=== PATIENT | female | born 1965 | race Caucasian/White ===

== ENCOUNTER 2021-10-22 10:41 | Outpatient (CLI) | payer MEDICAID, SELFPAY | END 2021-10-22 10:42 | disposition home or self-care (01) | LOC: LKVREF 10-25 10:55 | PROVIDERS: Visit Provider Nurse Practitioner Family | DX: R35.0 Frequency of micturition (principal); N39.0 Urinary tract infection, site not specified; R30.0 Dysuria | CPT/HCPCS: 87086 ==